=== PATIENT | male | born 1945 | race Caucasian/White ===

== ENCOUNTER 2020-07-07 07:34 | Emergency (ER) | payer MEDICARE ==
[2020-07-07 08:08] VITALS: BP 190/86; PULSE 63
[2020-07-07] MEDS ORDERED: Sodium Chloride 0.9% 10 ML Syringe FLUSH PRN ×2 (08:26→09:29)
--- NOTE | 2020-07-07 08:43 | EDM.PDOC ---
ED HPI GENERAL MEDICAL PROBLEM - General Chief Complaint: Gastrointestinal Problem Stated Complaint: CONSTIPATION Time Seen by Provider: 07/07/20 08:15 Source of Information: Reports: Patient, RN Notes Reviewed History Limitations: Reports: No Limitations - History of Present Illness INITIAL COMMENTS - FREE TEXT/NARRATIVE: Patient is a 75-year-old male presenting to the emergency department with complaints of low back pain and intermittent intense abdominal pain. He states that his not had a bowel movement since Sunday which is 5 days ago. He is passing little to no gas. On Sunday, he was having very intense abdominal pain and cramping as well as vomiting. He has not vomited since Sunday, however does intermittently have abdominal pain still. He complains of bilateral low back pain. Denies any dysuria or hematuria. He has had no fever or chills. He has not taken any [id number] laxatives. Denies any history of previous abdominal surgeries. Bilateral Flank Pain Score (Numeric/FACES): 9 - Related Data Allergies Allergy/AdvReac Type Severity Reaction Status Date / Time amoxicillin Allergy Facial Verified 07/07/20 08:02 Swelling Home Meds: Home Meds . [No Known Home Meds] 07/07/20 [History] Past Medical History HEENT History: Reports: Hard of Hearing, Impaired Vision, Other (See Below) Other HEENT History: upper denture Cardiovascular History: Reports: None Respiratory History: Reports: None Gastrointestinal History: Reports: None Genitourinary History: Reports: None Musculoskeletal History: Reports: Arthritis Neurological History: Reports: None Psychiatric History: Reports: None Endocrine/Metabolic History: Reports: None Immunologic History: Reports: None Oncologic (Cancer) History: Reports: None Dermatologic History: Reports: None - Infectious Disease History Infectious Disease History: Reports: Chicken Pox - Past Surgical History Head Surgeries/Procedures: Reports: None HEENT Surgical History: Reports: Oral Surgery GI Surgical History: Reports: Colonoscopy Musculoskeletal Surgical History: Reports: Other (See Below) Other Musculoskeletal Surgeries/Procedures:: femur fracture with surgical repair Social & Family History - Family History Family Medical History: No Pertinent Family History - Tobacco Use Tobacco Use Status *Q: Current Every Day Tobacco User Years of Tobacco use: 50 Packs/Tins Daily: 1 - Caffeine Use Caffeine Use: Reports: Coffee, Soda - Recreational Drug Use Recreational Drug Use: No ED ROS GENERAL - Review of Systems Review Of Systems: See Below Constitutional: Reports: No Symptoms. Denies: Fever, Chills, Weakness HEENT: Reports: No Symptoms Respiratory: Reports: No Symptoms Cardiovascular: Reports: No Symptoms Endocrine: Reports: No Symptoms GI/Abdominal: Reports: Abdominal Pain, Constipation, Nausea. Denies: Diarrhea : Reports: Flank Pain. Denies: Dysuria, Frequency Musculoskeletal: Reports: Back Pain Skin: Reports: No Symptoms Neurological: Reports: No Symptoms Psychiatric: Reports: No Symptoms Hematologic/Lymphatic: Reports: No Symptoms Immunologic: Reports: No Symptoms ED EXAM, GI/ABD - Physical Exam Exam: See Below General Appearance: Alert, WD/WN, No Apparent Distress Respiratory/Chest: No Respiratory Distress, Lungs Clear, Normal Breath Sounds, No Accessory Muscle Use, Chest Non-Tender Cardiovascular: Normal Peripheral Pulses, Regular Rate, Rhythm, No Edema, No Gallop, No JVD, No Murmur, No Rub GI/Abdominal Exam: Soft, Non-Tender, No Organomegaly, No Distention, No Abnormal Bruit, No Mass, Pelvis Stable, Abnormal Bowel Sounds (Hypoactive throughout) Back Exam: Normal Inspection, Full Range of Motion. No: CVA Tenderness (L), CVA Tenderness (R) Extremities: Normal Inspection, Normal Range of Motion, Non-Tender, Normal Capillary Refill, No Pedal Edema Neurological: Alert, Oriented, CN II-XII Intact, Normal Cognition, Normal Gait, Normal Reflexes, No Motor/Sensory Deficits Psychiatric: Normal Affect, Normal Mood Skin Exam: Warm, Dry, Intact, Normal Color, No Rash Course - Vital Signs Last Recorded V/S: Last Vital Signs Temp 98.1 F 07/07/20 08:05 Pulse 63 07/07/20 08:05 Resp 16 07/07/20 08:05 BP 190/86 H 07/07/20 08:05 Pulse Ox 99 07/07/20 08:05 - Orders/Labs/Meds Labs: Laboratory Tests 07/07/20 07/07/20 07/07/20 Range/Units 08:30 08:30 08:30 WBC 9.53 H (4.23-9.07) K/mm3 RBC 4.43 L (4.63-6.08) M/mm3 Hgb 14.4 (13.7-17.5) gm/dl Hct 42.0 (40.1-51.0) % MCV 94.8 H (79.0-92.2) fl MCH 32.5 H (25.7-32.2) pg MCHC 34.3 (32.2-35.5) g/dl RDW Std Deviation 42.4 (35.1-43.9) fL Plt Count 227 (163-337) K/mm3 MPV 11.4 (9.4-12.3) fl Neut % (Auto) 64.8 (34.0-67.9) % Lymph % (Auto) 24.6 (21.8-53.1) % Storey % (Auto) 9.0 (5.3-12.2) % Eos % (Auto) 0.9 (0.8-7.0) Baso % (Auto) 0.6 (0.1-1.2) % Neut # (Auto) 6.17 H (1.78-5.38) K/mm3 Lymph # (Auto) 2.34 (1.32-3.57) K/mm3 Storey # (Auto) 0.86 H (0.30-0.82) K/mm3 Eos # (Auto) 0.09 (0.04-0.54) K/mm3 Baso # (Auto) 0.06 (0.01-0.08) K/mm3 Sodium 136 (136-145) mEq/L Potassium 4.3 (3.5-5.1) mEq/L Chloride 99 (98-107) mEq/L Carbon Dioxide 25 (21-32) mEq/L Anion Gap 16.3 H (5-15) BUN 17 (7-18) mg/dL Creatinine 1.3 (0.7-1.3) mg/dL Est Cr Clr Drug Dosing 49.91 mL/min Estimated GFR (MDRD) 54 (>60) mL/min BUN/Creatinine Ratio 13.1 L (14-18) Glucose 115 (83-115) mg/dL Calcium 9.2 (8.5-10.1) mg/dL Total Bilirubin 0.5 (0.2-1.0) mg/dL AST 16 (15-37) U/L ALT 21 (16-63) U/L Alkaline Phosphatase 91 (46-116) U/L C-Reactive Protein 0.3 (<1.0) mg/dL Total Protein 8.0 (6.4-8.2) g/dl Albumin 3.9 (3.4-5.0) g/dl Globulin 4.1 gm/dL Albumin/Globulin Ratio 1.0 (1-2) Lipase 68 L (73-393) U/L Urine Color Yellow (Yellow) Urine Appearance Clear (Clear) Urine pH 6.0 (5.0-8.0) Ur Specific Irwin 1.025 (1.005-1.030) Urine Protein Trace H (Negative) Urine Glucose (UA) Negative (Negative) Urine Ketones Negative (Negative) Urine Occult Blood 3+ H (Negative) Urine Nitrite Negative (Negative) Urine Bilirubin Negative (Negative) Urine Urobilinogen 0.2 (0.2-1.0) Ur Leukocyte Esterase Negative (Negative) Urine RBC 40-50 H (0-5) /hpf Urine WBC 0-5 (0-5) /hpf Ur Squamous Epith Cells 0-5 (0-5) /hpf Urine Bacteria Few (FEW) /hpf Urine Mucus Not seen (FEW) /hpf Meds: Medications Discontinued Medications Generic Name Dose Route Start Last Admin Trade Name Freq PRN Reason Stop Dose Admin Diatrizoate Meglum/Diatrizoate Sod 120 ml 07/07/20 09:29 07/07/20 09:48 Gastrografin 37% PO 07/07/20 09:30 45 ml ONETIME ONE Administration Iopamidol 100 ml 07/07/20 09:29 07/07/20 09:48 Isovue-300 (61%) IVPUSH 07/07/20 09:30 100 ml ONETIME ONE Administration Magnesium Citrate 296 ml 07/07/20 11:46 07/07/20 11:56 Citrate Of Magnesia PO 07/07/20 11:47 296 ml ONETIME ONE Administration Sodium Chloride 10 ml 07/07/20 08:26 07/07/20 08:30 Saline Flush FLUSH 10 ml ASDIRECTED PRN Administration Keep Vein Open Sodium Chloride 10 ml 07/07/20 09:29 07/07/20 09:50 Saline Flush FLUSH 10 ml ONETIME PRN Administration IV FLUSH - Re-Assessments/Exams Free Text/Narrative Re-Assessment/Exam: Patient is a 75-year-old male presenting to the emergency department with complaints of abdominal pain, nausea, vomiting, and back pain. Last bowel movement was Sunday. On exam, bowel sounds are hypoactive. He has no tenderness to palpation of the abdomen. I have ordered blood work including CBC, CMP, CRP, lipase, urinalysis, and a CT scan of the abdomen pelvis with contrast. 07/07/20 11:40 Hematology was grossly unremarkable. Urinalysis was significant for 3+ occult blood and 40-[address] scan of the abdomen pelvis shows a 1.3 cm abnormality within the posterior right bladder which could represent small transitional cell carcinoma. Referral to urologist is recommended. Increase stool is noted throughout the colon. Discussed results with patient. He does not have a u rologist. I have left a message with the 1 call at [facility] to discuss the case with urology. With regards to constipation, discussed that the oral contrast to drink may be laxative enough to make him have a bowel movement, however I will also send him home with a bottle of magnesium citrate if he does not have a bowel movement within the next few hours. Enema was offered, however he declined. 07/07/20 11:45 Case discussed with urologist, Dr. Grove, at [facility] in [place]. He will have his office contact the patient to set up a visit for or Sunday of this week with a plan to complete cystoscopy at that time. Patient cell phone number provided to Dr. Grove. Patient updated on the symptoms and is in agreement. We will send him home with a bottle of magnesium citrate. Discharge instructions as documented. Departure - Departure Time of Disposition: 11:47 Disposition: Home, Self-Care 01 Condition: Good Clinical Impression: Mass of bladder Constipation Qualifiers: Constipation type: unspecified constipation type Qualified Code(s): K59.00 - Constipation, unspecified Hematuria Qualifiers: Hematuria type: unspecified type Qualified Code(s): R31.9 - Hematuria, unspecified - Discharge Information Instructions: Constipation, Adult, [id number] Referrals: Alan Grove MD [Ordering Only Provider] - Forms: ED Department Discharge Additional Instructions: You were seen in the emergency department today for intermittent abdominal pain as well as back pain. CT scan was completed of your abdomen pelvis and did show that you do have a significant amount of stool throughout your colon. This is likely the cause of your abdominal discomfort and back pain. CT scan did also show a 1.3 cm mass in your bladder you also did have blood in your urine. Your case was discussed with Dr. Grove, urologist at [facility] in [place]. His office will be calling you to set up an appointment. As we discussed, the contrast that you drink for your CT scan is in itself a laxative. This may be enough to cause you to have a bowel movement. If you not have a bowel movement the next few hours, recommend drinking the bottle of magnesium citrate that was sent home with you. I would recommend starting a daily stool softener such as Colace to maintain regular bowel movements. Return to ER as needed. Sepsis Event Note (ED) - Evaluation Sepsis Screening Result: No Definite Risk
[2020-07-07] MEDS ORDERED: Diatrizoate Meglumine/Diatrizoate Sodium 37% 120 ML Bottle PO ONE (09:29)
[2020-07-07] MEDS ORDERED: Iopamidol 612 MG/ML 100 ML Bottle IVPUSH ONE (09:29)
--- NOTE | 2020-07-07 10:16 | CT ---
CT abdomen and pelvis Technique: Multiple axial sections were obtained from above the dome of the diaphragm inferiorly through the pubic symphysis. Intravenous and oral contrast was utilized. Delayed images were also obtained through the bladder. Reconstructed coronal and sagittal images were obtained. Findings: Visualized lung bases show nothing acute. Slight parenchymal scarring appears to be present. Liver contains no focal parenchymal abnormality. Spleen appears within normal limits. Contrast reflux is noted into the distal esophagus. Adrenal glands show no discrete abnormality. Pancreas is within normal limits. Gallbladder contains no calcified gallstones. Kidneys show symmetric contrast enhancement. Cyst is noted within the right kidney measuring approximately 1.8 cm. Several small cysts measuring less than 1 cm are seen within the left kidney. Abdominal aorta shows minimal aneurysmal dilatation within the mid aspect measuring 2.6 cm. Atherosclerotic calcification continues into nondilated iliac vessels. No retroperitoneal adenopathy is seen. Soft tissue density is seen within the posterior right bladder which measures about 1.3 cm suspicious for small bladder mass. Right-sided small hydrocele is seen within the scrotum. Increased stool is seen throughout the colon. No inflammatory change is appreciated. Appendix is seen and iappears to be within normal limits. Bone window settings were reviewed which show mild scattered degenerative change throughout the spine. Delayed images show contrast within the distal ureters and within the bladder. Impression: 1. 1.3 cm abnormality within the posterior right bladder which could represent small transitional cell carcinoma. Referral to a urologist is recommended. 2. Increased stool is noted throughout the colon. 3. Other nonacute findings as noted above. Diagnostic code #9
[2020-07-07] MEDS ORDERED: Magnesium Citrate Solution 296 ML Bottle PO ONE (11:46)
== END 2020-07-07 12:09 | disposition home or self-care (01) ==
LOC: JD.ED 07:34
DX: K59.00 Constipation, unspecified (principal); N32.89 Other specified disorders of bladder; R31.9 Hematuria, unspecified; Z88.0 Allergy status to penicillin; Z72.0 Tobacco use
CPT/HCPCS: 36415; 74177; 80053; 81001; 83690; 85025; 86140; 99284; A9270; Q9963; Q9967

== ENCOUNTER 2024-01-16 10:09 | Day surgery (SDC) | payer MEDICARE ==
[~2024-01-16 10:09] MED LIST: Lidocaine 1% 4 ML ONE; Lidocaine 1% PF 2 ML SDV ONE; Propofol 200 MG/20 ML SDV ONE; Sodium Chloride 0.9% 10 ML Syringe FLUSH PRN; Sodium Chloride 0.9% 10 ML Syringe FLUSH SCH; fentaNYL 100 MCG/2 ML SDV ONE
[2024-01-16] MEDS: Lactated Ringers 1,000 ML IV SCH (10:30)
[2024-01-16 12:52] VITALS: BP 125/70; PULSE 62
== END 2024-01-16 12:45 | disposition home or self-care (01) ==
LOC: JD.SDS 10:09
PROVIDERS: ATTEND Surgery
DX: Z12.11 Encounter for screening for malignant neoplasm of colon (principal); D12.3 Benign neoplasm of transverse colon; D12.4 Benign neoplasm of descending colon; D12.5 Benign neoplasm of sigmoid colon; K64.9 Unspecified hemorrhoids; Z86.010 Personal history of colon polyps; F17.210 Nicotine dependence, cigarettes, uncomplicated
CPT/HCPCS: 00811; J2704; J3010; J3490; J7120